=== PATIENT | male | born 1995 | race Native Hawaiian/Other Pacific Islander ===

== ENCOUNTER 2022-07-06 15:32 | Emergency (ER) | payer OTHER ==
[~2022-07-06] VITALS: Ht 188 cm; Wt 172.4 kg
[2022-07-06 15:38] VITALS: BP 154/87; TEMP 98.4
[2022-07-06 16:21] LABS: PLATELET COUNT 240 K/uL (142-355)
[2022-07-06 17:08] LABS: POTASSIUM 4.2 mmol/L (3.6-5.2)
== END 2022-07-06 17:30 | disposition home or self-care (01) ==
LOC: ED 15:32 → EDSEX 15:32 → ED 17:30
PROVIDERS: Emergency Medicine
DX: Z91.14 Patient's other noncompliance with medication regimen (principal); I10 Essential (primary) hypertension; Z20.822 Contact with and (suspected) exposure to COVID-19; F17.220 Nicotine dependence, chewing tobacco, uncomplicated
CPT/HCPCS: 80053; 80307; 81002; 84484; 85027; 87502; 87635; 93005; 99283; U0003